=== PATIENT | male | born 1960 | race Caucasian/White ===

== ENCOUNTER 2019-01-28 18:01 | Emergency (ER) | payer OTHER ==
--- NOTE | 2019-01-28 18:23 | RAD ---
XR Foot Rt 3 View STANDARD History: Foot pain. Comparison: None. Findings: Nondisplaced fracture fifth proximal metatarsal tuberosity proximal to the metaphyseal/diap hyseal junction. Lisfranc interval is maintained. Bipartite lateral hallux sesamoid. Impression: Nondisplaced fracture fifth proximal metatarsal tuberosity proximal to the metaphyseal/di aphyseal junction.
[2019-01-28] MEDS ORDERED: traMADol HCl 50 MG TAB ONE ×2 (18:25)
== END 2019-01-28 18:38 ==
LOC: NAV ERS 18:01
DX: S92.354A Nondisplaced fracture of fifth metatarsal bone, right foot, initial encounter for closed fracture (principal); S93.601A Unspecified sprain of right foot, initial encounter; Z85.038 Personal history of other malignant neoplasm of large intestine; X50.1XXA Overexertion from prolonged static or awkward postures, initial encounter

== ENCOUNTER 2019-03-08 16:37 | Emergency (ER) | payer OTHER ==
[~2019-03-08 16:37] MED LIST: Iopamidol 370 76% 150 ML VIAL FS ONE
[2019-03-08 17:19] LABS: #Basophils 0.1 thou/uL (0.0-0.2); #Eosinphils 0.9 thou/uL (0.0-0.7); #Lymphocytes 1.7 thou/uL (1.20-3.40); #Monocytes 1.1 thou/uL (0.11-0.59); #Neutrophils 8.8 thou/uL (1.40-6.50); %Basophils 0.6 % (0.0-1.0); %Eosinophils 6.9 % (0.0-10.0); %Lymphocytes 13.6 % (21.0-51.0); %Monocytes 8.7 % (0.0-10.0); %Neutrophils 70.2 % (42.0-75.0); Hemoglobin 16.4 g/dL (14.0-18.0); Mean Corpuscular Hemoglobin 29.9 pg (27.0-31.0); Mean Corpuscular Volume 90.3 fL (78.0-98.0); Platelet Count 307 thou/uL (130-400); RBC Distribution Width 12.1 % (11.5-14.5); Red Blood Cell (RBC) Count 5.49 mill/uL (4.70-6.10); White Blood Cell (WBC) Count 12.5 thou/uL (4.8-10.8)
--- NOTE | 2019-03-08 17:25 | RAD ---
XR Chest 1 View Portable HISTORY: Cough, fever COMPARISON: None FINDINGS: There is a left subclavian Port-A-Cath with tip in the projection of the SVC. The heart siz e is enlarged. There is a moderate-sized left pleural effusion with consolidation/atelectatic change in the left lung base.No pneumothoraces are seen.
[2019-03-08 17:41] LABS: ALT (SGPT) 81 U/L (8-55); AST (SGOT) 43 U/L (5-34); Albumin 3.6 g/dL (3.5-5.0); Alkaline Phosphatase 58 U/L (40-110); Anion Gap 15 mmol/L (10-20); BUN (Urea Nitrogen) 13 mg/dL (8.4-25.7); Bilirubin, Total 0.6 mg/dL (0.2-1.2); CK (CPK) 60 U/L (30-200); Calc. Creatinine Clearance 0 mL/min (70-130); Calcium 9.5 mg/dL (7.8-10.44); Carbon Dioxide 24 mmol/L (22-29); Chloride 105 mmol/L (98-107); Estimated GFR-MDRD Greater than 90; Globulin 3.9 g/dL (2.4-3.5); Glucose 118 mg/dL (70-105); Potassium 4.2 mmol/L (3.5-5.1); Protein, Total 7.5 g/dL (6.0-8.3); Sodium 140 mmol/L (136-145)
[2019-03-08 17:58] LABS: CKMB 1.4 ng/mL (0-6.6)
[2019-03-08 18:18] LABS: Bilirubin Negative (Negative); Blood, Urine Trace (Negative); Clarity Clear (Clear); Glucose, Urine (Dipstick) Negative (Negative); Leukocyte Negative (Negative); Nitrite Negative (Negative); Protein, Urine (Dipstick) Negative (Neg-Trace)
[2019-03-08 18:19] LABS: Bacteria/HPF None Seen HPF (None Seen); Squamous Epithelial 0-3 HPF (0-3); WBC/HPF None Seen HPF (0-3)
[2019-03-08] MEDS ORDERED: Sodium Chloride 0.9% 250 ML 250 ML ONE (19:07)
[2019-03-08] MEDS ORDERED: Azithromycin 500 MG VIAL ONE ×2 (19:07→19:31)
[2019-03-08] MEDS ORDERED: cefTRIAXone\\ROCEPHIN 2 GM VIAL ONE (19:08)
[2019-03-08] MEDS ORDERED: Sodium Chloride 0.9% 100 ML ONE (19:09)
[2019-03-08] MEDS ORDERED: Sodium Chloride 0.9% 1,000 ML ONE (19:28)
[2019-03-08] MEDS ORDERED: Acetaminophen 325 MG TAB ONE (19:31)
[2019-03-08] MEDS ORDERED: Ibuprofen 200 MG TAB ONE (19:31)
--- NOTE | 2019-03-08 21:13 | CT ---
CT PULMONARY ANGIOGRAM WITH IV CONTRAST AND 3D POSTPROCESSING: Date: 03/08/19 HISTORY: Increased D-Dimer, left pleural effusion, colon cancer diagnosed in 2013. FINDINGS: No filling defects are seen in the contrast-opacified pulmonary arterial vasculature to suggest pulmo nary embolism. A large left pleural effusion is seen. There is mass-like consolidation in the left up per lobe. There is an 8 mm nodule in the superior segment of the right lower lobe. There is opacification of the thoracic aorta without aneurysm or dissection. No pericardial or right- sided pleural effusion is seen. IMPRESSION: 1. No CT evidence of pulmonary embolism. 2. Large left pleural effusion. Further evaluation with PET scan is recommended. Bronchoscopy would be helpful as well. POS: [facility]
[2019-03-08 22:14] LABS: Troponin I 0.128 ng/mL (< 0.028)
== END 2019-03-08 23:00 | disposition short-term general hospital (02) ==
LOC: NAV ERS 16:37
DX: J90 Pleural effusion, not elsewhere classified (principal); Z86.19 Personal history of other infectious and parasitic diseases; Z85.038 Personal history of other malignant neoplasm of large intestine
CPT/HCPCS: 36415; 71045; 71275; 80053; 81003; 81015; 82550; 82553; 83605; 84484; 85025; 85379; 87040; 87804; 93005; 94760; 96365; 96367; J0456; J0696; J3490; J7050